=== PATIENT | male | born 1930 | race Caucasian/White ===

== ENCOUNTER 2016-11-24 08:11 | Observation (INO) | payer MEDICARE, OTHER ==
[~2016-11-24] VITALS: Ht 170.2 cm; Wt 81.6 kg
[2016-11-24] VITALS (10 sets, daily range): BP systolic 91–131; BP diastolic 45–75
[~2016-11-24 08:11] MED LIST: ACET325T9 PO; ASPI-252 PO; CIPR500T94 PO; CITA10TA8 PO; FENTANYL PF 100 MCG/2 ML VIAL. IV PRN; FERR325T58 PO; HYDR-2762 PO; HYDR-971 PO; HYDR200T5 PO; HYDROMORPHONE 2 MG/ML VIAL. IV PRN; IBUP100O7 PO; IV RINGERS,LACTATED 1000ML 1,000 ML IV SCH; LIDOCAINE 1% 1 ML SYRINGE. ID PRN; MORPHINE SULFATE 2 MG/ML DISP.SYRIN. IV PRN; NITR100C63 PO; ONDANSETRON PF 4 MG/2 ML VIAL. IV PRN; PHEN-318 PO; PROCHLORPERAZINE 10 MG/2 ML VIAL. IV PRN; RANI150C PO; TAMS0.4C2 PO; TAMS0.4C97 PO; TIZA4TAB PO; TRIM100T PO
[2016-11-24] MEDS ORDERED: PROPOFOL 20 ML IV ONE (09:36)
[2016-11-24] MEDS ORDERED: EPHEDRINE PF IN SALINE 50 MG/5 ML DISP.SYRIN. IV ONE (09:36)
[2016-11-24] MEDS ORDERED: DEXAMETHASONE SOD PHOS 20 MG/5 ML VIAL. ONE (09:36)
[2016-11-24] MEDS ORDERED: ONDANSETRON PF 4 MG/2 ML VIAL. ONE (09:36)
[2016-11-24] MEDS ORDERED: FENTANYL PF 100 MCG/2 ML VIAL. ONE (09:36)
[2016-11-24] MEDS ORDERED: PHENYLEPHRINE in 0.9% NACL PF 1 MG/10 ML DISP.SYRIN. IV ONE (09:37)
[2016-11-24] MEDS: IV RINGERS,LACTATED 1000ML 1,000 ML IV SCH ×2 (09:50→09:54)
[2016-11-24 10:02] LABS: BASO % 1 % (0-3); EOS % 3 % (0-3); HEMATOCRIT 43.9 % (39.0-53.0); HEMOGLOBIN 14.9 g/dL (13.0-17.5); LYMPH # 1.9 x10^3/uL (1.0-4.8); LYMPH % 29 % (24-48); MEAN CORPUSCULAR HEMOGLOBIN 29 pg (25-35); MEAN CORPUSCULAR HGB CONC 34 g/dL (31-37); MEAN CORPUSCULAR VOLUME 86 fL (79-100); MONO % 11 % (0-9); NEUT % 56 % (31-73); PLATELET COUNT 241 x10^3/uL (140-400); RED BLOOD COUNT 5.09 x10^6/uL (4.30-5.70); RED CELL DISTRIBUTION WIDTH 13.9 % (11.5-14.5); WHITE BLOOD COUNT 6.4 x10^3/uL (4.0-11.0)
[2016-11-24 10:15] LABS: CALCIUM 8.5 mg/dL (8.5-10.1); CREATININE 0.8 mg/dL (0.7-1.3); GFR 91.7; POTASSIUM 4.1 mmol/L (3.5-5.1)
[2016-11-24] MEDS ORDERED: SEVOFLURANE 31 TO 60 MINUTES. IH ONE (10:32)
[2016-11-24] MEDS: FENTANYL PF 100 MCG/2 ML VIAL. IV PRN ×2 (10:56→11:19)
[2016-11-24] MEDS ORDERED: HYDROCODONE/APAP 5/325MG TABLET. PO PRN ×2 (11:00→15:19)
[2016-11-24] MEDS ORDERED: DIPHENHYDRAMINE HCL 25 MG CAPSULE PO PRN (11:00)
[2016-11-24] MEDS ORDERED: MAG HYDROX/ALUMINUM HYD/SIMETH 30 ML ORAL.SUSP PO PRN (11:00)
[2016-11-24] MEDS ORDERED: NALOXONE 0.4 MG/ML VIAL. IV PRN (11:00)
[2016-11-24] MEDS ORDERED: MAGNESIUM HYDROXIDE 2,400 MG/30 ML ORAL.SUSP. PO PRN (11:00)
[2016-11-24] MEDS ORDERED: MORPHINE SULFATE 2 MG/ML DISP.SYRIN. IV PRN (11:00)
[2016-11-24] MEDS ORDERED: ONDANSETRON PF 4 MG/2 ML VIAL. IV PRN (11:00)
[2016-11-24] MEDS ORDERED: 0.9 % SODIUM CHLORIDE 10 ML DISP.SYRIN. IV PRN (11:00)
[2016-11-24] MEDS ORDERED: HYDROCODONE/APAP 5/325MG TABLET. PO SCH ×2 (11:00→11:15)
[2016-11-24] MEDS ORDERED: ACETAMINOPHEN 325 MG TABLET. PO PRN (11:00)
--- NOTE | 2016-11-24 11:13 | PDOC ---
BRIEF OPERATIVE NOTE Date: Nov 24, 2016 Pre-Op Diagnosis Bladder tumor Post-Op Diagnosis same Procedure Performed Cystoscopy fulguration med bladder tumor bladder biopsies Surgeon Adela Anesthesia Type: General Blood Loss minimal Specimens Obtained bladder biopsies Findings same Complications none Additional Remarks Mitomycin intravesicle treatment ordered for tomorrow morning TIP AMIN DO Nov 24, 2016 11:13
[2016-11-24] MEDS: LEVOFLOXACIN 500 MG TABLET PO SCH (13:17)
--- NOTE | 2016-11-24 14:48 | OP ---
DATE OF SURGERY: 11/24/2016 PREOPERATIVE DIAGNOSIS: Bladder tumor. POSTOPERATIVE DIAGNOSIS: Bladder tumor. PROCEDURE: Cystoscopy, bladder biopsies, fulguration of medium bladder tumor. SURGEON: Tip Amin D.O. ANESTHESIA: General. DRAINS: A 20-Bermudian 2-way Valentin catheter to dependent drainage bag. INDICATIONS AND JUDGMENT: This is an 86-year-old male that recently underwent cystoscopy in the office for microscopic hematuria. The patient was found to have medium bladder tumor on the anterior wall of the bladder on the left side. It was felt that he should undergo bladder biopsies and fulguration of bladder tumor. This was explained to the patient; he appeared to understand and was agreeable. OPERATION PROCEDURE: The patient was preloaded with IV Levaquin. He was taken to the operating room and placed on the operating room table, given a general anesthetic and then placed in a dorsolithotomy position using Ernie stirrups. Genitalia prepped and draped in sterile fashion. Rigid cystoscopy was performed. The urethra was normal course and caliber. The prostate had been adequately resected. Scope was advanced into the bladder. The bladder was carefully examined with a 30-degree and 70-degree lens. The bladder floor was normal. No evidence of tumor or calculi. Careful inspection revealed a bladder tumor on the anterior bladder wall on the patient's left side. It was difficult to reach. I had to have the talent acquisition assistant push down on the suprapubic area to bring the tumor in to focus. Two cold cup biopsies were taken of the bladder tumor and submitted to pathology. Following that, an Ahead resectoscope was fitted with a rollerball and with the talent acquisition assistant pushing down on to the suprapubic area to bring the tumor in to vision, I fulgurated the bladder tumor completely and also the biopsy sites to stop hematuria. Once this was completely done, the instruments were removed from the bladder. A well-lubricated 20-Bermudian Valentin catheter was advanced into the urethra and into the bladder, the 10 mL balloon was filled and this was connected to dependent drainage bag. The patient will be placed in the recovery room and then go to observation bed for 24 hours. I have contacted the pharmacy to mixup 40 mg of mitomycin and 50 mL of sterile water and I will administer that intravesically tomorrow morning prior to removing his Valentin catheter. TIP AMIN DO DR: RUSSELL/tomas JOB#: [id number] / [id number]
[2016-11-24] MEDS: POTASSIUM CL 20MEQ-0.45% NACL 1,000 ML IV SCH ×2 (15:10→21:17)
[2016-11-24] MEDS: HYDROCODONE/APAP 5/325MG TABLET. PO PRN ×2 (15:21→19:22)
[2016-11-24] MEDS ORDERED: TAMSULOSIN 0.4 MG CAP.ER.24H. PO SCH (18:00)
[2016-11-24] MEDS ORDERED: tiZANidine 4 MG TABLET. PO SCH (21:00)
[2016-11-24] MEDS ORDERED: CITALOPRAM 10 MG TABLET. PO SCH (21:00)
[2016-11-24] MEDS: HYDROXYCHLOROQUINE 200 MG TABLET PO SCH (21:17)
[2016-11-24] MEDS: SENNOSIDES/DOCUSATE 8.6/50MG TABLET. PO SCH (21:17)
[2016-11-25] MEDS: POTASSIUM CL 20MEQ-0.45% NACL 1,000 ML IV SCH (00:05)
[2016-11-25 03:00] VITALS: BP 113/61
[2016-11-25 05:31] LABS: BASO % 0 % (0-3); EOS % 0 % (0-3); HEMATOCRIT 40.7 % (39.0-53.0); HEMOGLOBIN 13.4 g/dL (13.0-17.5); LYMPH # 1.3 x10^3/uL (1.0-4.8); LYMPH % 11 % (24-48); MEAN CORPUSCULAR HEMOGLOBIN 29 pg (25-35); MEAN CORPUSCULAR HGB CONC 33 g/dL (31-37); MEAN CORPUSCULAR VOLUME 87 fL (79-100); MONO % 8 % (0-9); NEUT % 80 % (31-73); PLATELET COUNT 230 x10^3/uL (140-400); RED BLOOD COUNT 4.67 x10^6/uL (4.30-5.70); RED CELL DISTRIBUTION WIDTH 14.6 % (11.5-14.5); WHITE BLOOD COUNT 11.3 x10^3/uL (4.0-11.0)
[2016-11-25 05:45] LABS: CALCIUM 8.7 mg/dL (8.5-10.1); CREATININE 0.9 mg/dL (0.7-1.3); POTASSIUM 4.6 mmol/L (3.5-5.1)
[2016-11-25] MEDS: LEVOFLOXACIN 500 MG TABLET PO SCH (06:34)
[2016-11-25 07:00] VITALS: BP 109/50
[2016-11-25] MEDS: SENNOSIDES/DOCUSATE 8.6/50MG TABLET. PO SCH (08:25)
[2016-11-25] MEDS: HYDROXYCHLOROQUINE 200 MG TABLET PO SCH (08:25)
[2016-11-25] MEDS: HYDROCODONE/APAP 5/325MG TABLET. PO PRN (08:27)
[2016-11-25] MEDS ORDERED: MITOMYCIN IRR ONE (09:00)
[2016-11-25] MEDS ORDERED: STERILE WATER IRR ONE (09:00)
[2016-11-25 11:00] VITALS: BP 99/50
[2016-11-25] MEDS: IV RINGERS,LACTATED 1000ML 1,000 ML IV SCH (12:40)
--- NOTE | 2016-11-25 13:14 | DISCH ---
DISCHARGE INSTRUCTIONS Condition on Discharge Condition on Discharge: Stable Activity After Discharge Activity Instructions for Disc: Resume previous activity Weight Bearing Status after Di: No restrictions Diet after Discharge Diet after Discharge: Regular Contacting the DRNatacha after DC Call your doctor for: Concerns you may have Follow-Up Follow up with: Dr. Amin in 3 weeks TIP AMIN DO Nov 25, 2016 13:14
--- NOTE | 2016-11-25 13:18 | PDOC ---
Provider Note Provider Note Discharge Note: Patient urine vignesh Mitomycin 40mg in 50cc instilled into bladder and catheter removed. He was instructed to hold medication in bladder for 2 hrs and then void Plan: Home after above Rx Cipro f/u in my office in 3 weeks. Condition: satisfactory. TIP AMIN DO Nov 25, 2016 13:18
[2016-11-25 15:00] VITALS: BP 128/79
--- NOTE | 2016-11-25 18:05 | PATHOLOGY ---
PATHOLOGY REPORT * * * * * * * * FINAL DIAGNOSIS: Bladder tumor, transurethral resection: - HIGH-GRADE UROTHELIAL CARCINOMA, WITH FOCI SUSPICIOUS FOR TUMOR INVASION OF SUPERFICIAL LAMINA PROPRIA. SEE COMMENT. COMMENT: Sections of the bladder tumor transurethral resection reveal a high-grade urothelial carcinoma. Focally, there appear to be a few tumor cells within the superficial lamina propria suspicious for lamina propria tumor invasion. There is no muscularis propria present in the biopsy. The case is also examined by Dr. Ubaldo Najera, who concurs with the diagnosis. (JPM:; d/t: 11/25/16) REPORT ELECTRONICALLY SIGNED BY: Yg Esqueda M.D. DATE/TIME: 11/25/2016 17:31 * * * * * * * * GROSS PATHOLOGY: The specimen is received in formalin, labeled "Marily Jain and bladder biopsies." Received is a less than 1 g, 0.7 x 0.3 x 0.2 cm aggregate of pink-santana, rubbery, and irregular soft tissue fragments. The specimen is entirely submitted in cassette A1. (TTL; 11/24/2016) INITIAL CPT CODE(S): A; 66942 Professional services performed [place] [email or web address] [address] Technical services performed by [facility] at [address] [place] [address], [facility] [address] [address]. SPECIMEN(S) RECEIVED: A.Bladder biopsy CLINICAL HISTORY: Bladder tumors PATIENT: MARILY JAIN /AGE: 702/23/1930 (Age: 86) PATIENT #: [id number] ALT CASE #: SPECIMEN COLLECTION DATE: 11/24/2016 SPECIMEN RECEIVED DATE: 11/24/2016 [facility] - [address] [place] [address] - PHONE: [phone] * * * END OF REPORT * * *
--- NOTE | 2016-11-27 16:23 | PDOC ---
Provider Note Provider Note Urology: Discharge summary dictated on 11/27/16 TIP AMIN DO Nov 27, 2016 16:23
--- NOTE | 2016-11-27 23:38 | DS ---
DATE OF DISCHARGE: 11/25/2016 FINAL DIAGNOSIS: Bladder cancer. OPERATIONS AND PROCEDURES: Cystoscopy, fulguration of medium bladder tumor, bladder biopsies performed on 11/24/2016. HOSPITAL COURSE: This is summary of the patient's hospital course: A well-documented history and physical can be found in the body of the chart. This is an 86-year-old male that underwent cystoscopy in the office, was found to have a medium bladder tumor on the anterior wall of the bladder on the patient's left side. It was felt that he should undergo cystoscopy, bladder biopsies and fulguration bladder tumor. This was explained to the patient. He was agreeable. The patient was brought to the outpatient surgery on 11/24/2016. Under general anesthetic, the patient underwent cystoscopy. The tumor was identified at the anterior wall of the bladder on the patient's left side. Bladder biopsies were taken and submitted to pathology for tissue diagnosis. Following that, the tumor was both resected and fulgurated completely. Hemostasis was satisfactory. It was a little difficult to reach the bladder tumor due to its location and the patient's respirations also made little difficulty. The procedure was performed with the surgical physician assistant putting pressure on the suprapubic area to bring the tumor ____. Once hemostasis was satisfactory, the instruments were removed. A 20-Thai 2-way Valentin catheter was placed. The patient was admitted to observation overnight. His stay was uneventful. The following morning, the patient was given a mitomycin bladder treatment, 40 mg of mitomycin in 50 mL of saline was administered via catheter and then this catheter was removed. The patient was instructed to hold the medication in the bladder for 2 hours. The patient was then discharged after the mitomycin bladder treatment. He was given a prescription for Cipro antibiotics. We will schedule him a followup appointment to discuss the pathology, which was pending at the time of discharge. TIP AMIN DO DR: RUSSELL/tomas JOB#: [id number] / [id number]
== END 2016-11-25 15:45 | disposition home or self-care (01) ==
LOC: SURG 08:11 → 4 NORTH 10:50
PROVIDERS: ADMIT Urology; ATTEND Urology
DX: D49.4 Neoplasm of unspecified behavior of bladder (principal)
CPT/HCPCS: 36415; 51720; 52204; 52235; 80048; 85027; 85610; G0378; G0379; J1100; J1956; J2370; J2704; J3010; Q0163; J2405

== ENCOUNTER 2017-01-19 08:13 | Day surgery (SDC) | payer MEDICARE ==
[~2017-01-19] VITALS: Ht 170.2 cm; Wt 81.6 kg
[~2017-01-19 08:13] MED LIST changes: +CITA10TA4 PO; -FENTANYL PF 100 MCG/2 ML VIAL. IV PRN; -HYDROMORPHONE 2 MG/ML VIAL. IV PRN; +HYDROmorphone 2 MG/ML VIAL IV PRN; +IBUP100O24 PO; -IBUP100O7 PO; -ONDANSETRON PF 4 MG/2 ML VIAL. IV PRN; -TRIM100T PO; +TRIM100T13 PO; +fentaNYL PF VIAL 100 MCG/2 ML VIAL IV PRN
[2017-01-19] MEDS ORDERED: LIDOCAINE 1% PF 5 ML VIAL. ONE (09:28)
[2017-01-19] MEDS ORDERED: PROPOFOL 20 ML IV ONE (09:28)
[2017-01-19] MEDS ORDERED: DEXAMETHASONE SOD PHOS 20 MG/5 ML VIAL. ONE (09:29)
[2017-01-19] MEDS ORDERED: ONDANSETRON PF 4 MG/2 ML VIAL. ONE (09:29)
[2017-01-19 09:52] LABS: BASO # 0.1 x10^3/uL (0.0-0.2); BASO % 1 % (0-3); EOS % 3 % (0-3); HEMATOCRIT 43.4 % (39.0-53.0); HEMOGLOBIN 14.8 g/dL (13.0-17.5); LYMPH # 1.4 x10^3/uL (1.0-4.8); LYMPH % 25 % (24-48); MEAN CORPUSCULAR HEMOGLOBIN 30 pg (25-35); MEAN CORPUSCULAR HGB CONC 34 g/dL (31-37); MEAN CORPUSCULAR VOLUME 87 fL (79-100); MONO % 13 % (0-9); NEUT % 59 % (31-73); PLATELET COUNT 252 x10^3/uL (140-400); RED BLOOD COUNT 5.02 x10^6/uL (4.30-5.70); WHITE BLOOD COUNT 5.7 x10^3/uL (4.0-11.0)
[2017-01-19 09:59] LABS: BILIRUBIN,URINE NEGATIVE (NEG); GLUCOSE,URINE NEGATIVE (NEG); NITRITE,URINE NEGATIVE (NEG); PROTEIN,URINE NEGATIVE (NEG-TRACE); UROBILINOGEN,URINE 0.2 mg/dL (0.2 mg/dL)
[2017-01-19 10:01] LABS: BACTERIA,URINE FEW /HPF (0-FEW); RBC,URINE 0 /HPF (0-2)
[2017-01-19 10:03] LABS: CALCIUM 8.8 mg/dL (8.5-10.1); CREATININE 0.8 mg/dL (0.7-1.3); GFR 91.7
--- NOTE | 2017-01-19 11:10 | DISCH ---
DISCHARGE INSTRUCTIONS Condition on Discharge Condition on Discharge: Stable Activity After Discharge Activity Instructions for Disc: Resume previous activity Driving Instructions after Dis: Do not drive today Diet after Discharge Diet after Discharge: Regular Contacting the after DC Call your doctor for: Concerns you may have Follow-Up Follow up with: Dr. Amin will call with biopsy results TIP AMIN DO Jan 19, 2017 11:10
--- NOTE | 2017-01-19 11:13 | PDOC ---
BRIEF OPERATIVE NOTE Date: Jan 19, 2017 Pre-Op Diagnosis Bladder Cancer Post-Op Diagnosis No evidence of recurrence of bladder cancer Procedure Performed Cystoscopy bladder biopsy Surgeon Adela Anesthesia Type: General Blood Loss None Specimens Obtained bladder biopsy sent to Pathology Findings no evidence of recurrence Complications none Additional Remarks Home on Cipro, no catheter TIP AMIN DO Jan 19, 2017 11:13
[2017-01-19] MEDS ORDERED: CIPR500T94 PO (11:28)
--- NOTE | 2017-01-19 11:38 | OP ---
DATE OF SURGERY: 01/19/2017 PREOPERATIVE DIAGNOSIS: Superficial bladder cancer. POSTOPERATIVE DIAGNOSES: Superficial bladder cancer. PROCEDURE: Cystoscopy, bladder biopsy. SURGEON: Tip Amin DO. ANESTHESIA: General. DRAINS: None. 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 The patient completed a series of BCG bladder treatments. He was brought back to the hospital today to undergo cystoscopy evaluation to determine if there is any recurrence and possible bladder biopsies. The procedure was explained to the patient. He appeared to understand and was agreeable. DESCRIPTION OF PROCEDURE: The patient was preloaded with IV antibiotics. He was taken to the operating room and placed on the operating room table in supine position, given a general anesthetic and then placed in a dorsolithotomy position using Ernie stirrups since we do not have a cystoscopy table. Rigid cystoscopy was performed with a 21-Indonesian cystoscope. The urethra has normal course and caliber. The prostate fossa was visualized. The prostate is adequately resected. Scope was advanced into the bladder. The bladder was carefully examined with a 30-degree and 70-degree lens. The ureteral orifices were normal bilaterally. I did not see any evidence of recurrence of tumor. I did do one bladder biopsy in the area of inflammation and that was sent to pathology. I then cauterized the biopsy site with a Bugbee electrode. Hemostasis was satisfactory. The instruments were removed. I did not place a Valentin catheter. He was sent to recovery room in satisfactory condition. Plans will be to send the patient home from the recovery room. He was given a prescription for Cipro 500 mg p.o. b.i.d. for 3 days. We will await the results of the bladder biopsy. TIP AMIN DO DR: RUSSELL/tomas JOB#: [id number] / [id number]
[2017-01-19 11:55] VITALS: BP 161/62
--- NOTE | 2017-01-23 16:38 | PATHOLOGY ---
PATHOLOGY REPORT * * * * * * * * FINAL DIAGNOSIS: Bladder biopsy: - Chronic cystitis. COMMENT: Sections of the bladder biopsy reveal transitional mucosa, lamina propria, and small segment of smooth muscle. The surface urothelium shows focal reactive atypia. There is mild edema, congestion, and chronic inflammation within the lamina propria. The chronic inflammatory cell infiltrate contains lymphoid nodules. There is no evidence of malignancy. REPORT ELECTRONICALLY SIGNED BY: Yg Esqueda M.D. DATE/TIME: 01/23/2017 16:38 * * * * * * * * GROSS PATHOLOGY: Received in formalin labeled "Marily Jain, bladder biopsy," is a segment of light santana soft tissue measuring 0.3 x 0.3 x 0.2 cm in greatest dimension. The specimen is submitted entirely in cassette A1. (KAH; 01/20/2017) INITIAL CPT CODE(S): A; 99492 Professional services performed [place] [address] Technical services performed by [facility] at [address] [place] [address] [address] [address]. SPECIMEN(S) RECEIVED: A.Bladder biopsy CLINICAL HISTORY: Bladder cancer PATIENT: MARILY JAIN /AGE: 702/23/1930 (Age: 86) PATIENT #: [id number] ALT CASE #: SPECIMEN COLLECTION DATE: 01/19/2017 SPECIMEN RECEIVED DATE: 01/19/2017 [facility] - [address] [place] [address] - PHONE: [phone] * * * END OF REPORT * * *
== END 2017-01-19 11:55 | disposition home or self-care (01) ==
LOC: SURG 08:13
PROVIDERS: ATTEND Urology
DX: C67.9 Malignant neoplasm of bladder, unspecified (principal); Z85.51 Personal history of malignant neoplasm of bladder; I10 Essential (primary) hypertension; F41.9 Anxiety disorder, unspecified; F32.9 Major depressive disorder, single episode, unspecified; D64.9 Anemia, unspecified; F17.200 Nicotine dependence, unspecified, uncomplicated; K21.9 Gastro-esophageal reflux disease without esophagitis; Z86.69 Personal history of other diseases of the nervous system and sense organs; M19.90 Unspecified osteoarthritis, unspecified site; Z88.2 Allergy status to sulfonamides; Z91.048 Other nonmedicinal substance allergy status
CPT/HCPCS: 36415; 52204; 80048; 81001; 85027; J1100; J1956; J2405; J2704